=== PATIENT | female | born 1995 | race Caucasian/White ===

== ENCOUNTER 2020-07-04 17:42 | Observation (INO) | payer OTHER, SELFPAY ==
[2020-07-04 18:30] VITALS: BMI 36.6
--- NOTE | 2020-07-04 19:13 | OBADM ---
This patient, Kiesha Potter, admitted to the OB room Labor/Delivery/Recovery 103 for observation. Patient/family oriented to hospital policies and general routines including ID bracelet, bed and alarms, visiting hours, pain management, procedures, bathroom and other care routines, personal items, smoking policy, room service/diet, and visiting hours. Patient/Family are encouraged to report perceived risks to care and to ask questions if they do not understand what they are told or what they should do.
--- NOTE | 2020-07-28 20:25 | PM.OBTRLD ---
OB - Triage/Final Diagnosis Visit Information Reason for evaluation: threatened labor
== END 2020-07-04 19:00 | disposition home or self-care (01) ==
PROVIDERS: Admitting Provider Obstetrics & Gynecology; Visit Provider Obstetrics & Gynecology
DX: O47.9 False labor, unspecified (principal); Z3A.00 Weeks of gestation of pregnancy not specified
CPT/HCPCS: G0378; G0379

== ENCOUNTER 2020-07-20 14:49 | Inpatient (IN) | payer OTHER, SELFPAY ==
[2020-07-20] VITALS (38 sets, daily range): BP systolic 124–153; BP diastolic 80–102; PULSE 78–98; TEMP 36.5–36.6; BMI 39.9
--- NOTE | 2020-07-20 14:58 | LDADM ---
This patient, Keisha Potter, was admitted to Labor/Delivery/Recovery 106 on 07/20/20 at 14:49. Plans for labor, pain management and were discussed with patient. Patient/family oriented to hospital policies and general routines including ID bracelet, bed and alarms, visiting hours, pain management, procedures, bathroom and other care routines, personal items, smoking policy, room service/diet and guest tray routines, infant security routines, and visiting hours. Patient/Family are encouraged to report perceived risks to care and to ask questions if they do not understand what they are told or what they should do. See OBIX for further documentation.
[2020-07-20] MEDS: LACTATED RINGERS 1,000 ML 125 ML IV CONT (15:48)
[2020-07-20] MEDS: OXYTOCIN 30 UNITS/NS 500 ML 30 UNITS/500 ML BAG 6 UNITS IV CONT (15:49)
[2020-07-20 15:56] LABS: Basophils Percent Auto 0.1 % (0.2-1.2); Eosinophils Absolute Auto 0.1 K/mm3 (0-0.3); Eosinophils Percent Auto 0.6 % (0-4.4); Hematocrit 33.6 % (37.0-47.0); Hemoglobin 11.1 g/dL (12.0-15.0); Immature Granulocyte Absolute 0.03 K/mm3 (0.00-0.031); Immature Granulocyte Percent A 0.4 % (0-0.5); Lymphocytes Absolute Auto 1.54 K/mm3 (0.9-3.2); Lymphocytes Percent Auto 19.2 % (18.3-44.2); Mean Corpuscular Hemoglobin 27.3 pg (26-34); Mean Corpuscular Volume 82.8 fl (80-100); Mean Platelet Volume 10.5 fl (7.4-10.4); Monocytes Absolute Auto 0.5 K/mm3 (0.1-0.6); Monocytes Percent Auto 5.6 % (2.6-8.5); Neutrophils Percent Auto 74.1 % (45.5-73.1); Platelet Count Result 283 k/mm3 (150-375); Red Blood Count 4.06 M/mm3 (4.2-5.4); Red Cell Distribution Width 14.5 % (11.5-14.5)
[2020-07-20 16:08] LABS: Alanine Aminotransferase 18 U/L (4-35); Albumin Level 3.4 g/dL (3.5-5.1); Alkaline Phosphatase 116 U/L (38-126); Anion Gap 8 mmol/L (8-16); Aspartate Amino Transferase 24 U/L (14-36); Bilirubin,Total 0.3 mg/dL (0.2-1.3); Blood Urea Nitrogen 9 mg/dL (7-17); Calcium 8.7 mg/dL (8.4-10.2); Carbon Dioxide 19 mmol/L (22-30); Chloride 109 mmol/L (98-107); Estimated CRCL calculation 156 ml/min; Estimated Glomerular Filt Rate > 60; Glucose 111 mg/dL (65-105); Potassium 4.1 mmol/L (3.4-5.0); Sodium 136 mmol/L (137-145)
--- NOTE | 2020-07-20 16:41 | WPDANESEPP ---
Anes - Eval Pre Procedure Procedure: labor epidural Date/Time: 07/20/20 16:41 Surgeon: kay Pre Op Diagnosis: IOL Patient Data Age: 25 Gender: F Height: 1.57 m Weight: 99 kg Last Vital Signs Pulse 95 07/20/20 16:30 BP 124/90 07/20/20 16:30 Allergies Allergy/AdvReac Type Severity Reaction Status Date / Time Penicillins Allergy Unknown Verified 07/02/20 15:26 Home Medications Medication Instructions Recorded Confirmed Type PNV cmb#95-ferrous fumarate-FA 1 tablet PO DAILY 07/02/20 07/20/20 History [] Laboratory Tests 07/20/20 07/20/20 07/20/20 15:40 15:40 15:40 WBC 8.0 K/mm3 K/mm3 (4.5-10.0) RBC 4.06 M/mm3 L M/mm3 (4.2-5.4) Hgb 11.1 g/dL L g/dL (12.0-15.0) Hct 33.6 % L % (37.0-47.0) MCV 82.8 fl fl (80-100) MCH 27.3 pg pg (26-34) MCHC 33.0 g/dl g/dl (32-36) RDW 14.5 % % (11.5-14.5) Plt Count 283 k/mm3 k/mm3 (150-375) MPV 10.5 fl H fl (7.4-10.4) Immature Gran % (Auto) 0.4 % % (0-0.5) Neut % (Auto) 74.1 % H % (45.5-73.1) Lymph % (Auto) 19.2 % % (18.3-44.2) Braxton % (Auto) 5.6 % % (2.6-8.5) Eos % (Auto) 0.6 % % (0-4.4) Baso % (Auto) 0.1 % L % (0.2-1.2) Lymph # (Auto) 1.54 K/mm3 K/mm3 (0.9-3.2) Braxton # (Auto) 0.5 K/mm3 K/mm3 (0.1-0.6) Eos # (Auto) 0.1 K/mm3 K/mm3 (0-0.3) Baso # (Auto) 0.0 K/mm3 K/mm3 (0.0-0.1) Abs Immat Gran (auto) 0.03 K/mm3 K/mm3 (0.00-0.031) Absolute Neuts (auto) 6.0 K/mm3 K/mm3 (1.3-6.7) Absolute Nucleated RBC 0.0 K/mm3 K/mm3 (0.0-0.012) Nucleated RBC % 0.0 % % (0.0-0.2) Sodium 136 mmol/L L mmol/L (137-145) Potassium 4.1 mmol/L mmol/L (3.4-5.0) Chloride 109 mmol/L H mmol/L (98-107) Carbon Dioxide 19 mmol/L L mmol/L (22-30) Anion Gap 8 mmol/L mmol/L (8-16) BUN 9 mg/dL mg/dL (7-17) Creatinine 0.50 mg/dL L mg/dL (0.7-1.0) Estim Creat Clear Calc 156 ml/min ml/min Estimated GFR > 60 (59 - ) Glucose 111 mg/dL H mg/dL (65-105) Uric Acid 6.0 mg/dL mg/dL (2.5-7.5) Calcium 8.7 mg/dL mg/dL (8.4-10.2) Total Bilirubin 0.3 mg/dL mg/dL (0.2-1.3) AST 24 U/L U/L (14-36) ALT 18 U/L U/L (4-35) Alkaline Phosphatase 116 U/L U/L (38-126) Total Protein 7.0 g/dL g/dL (6.3-8.2) Albumin 3.4 g/dL L g/dL (3.5-5.1) RPR Pending 07/20/20 15:40 WBC RBC Hgb Hct MCV MCH MCHC RDW Plt Count MPV Immature Gran % (Auto) Neut % (Auto) Lymph % (Auto) Braxton % (Auto) Eos % (Auto) Baso % (Auto) Lymph # (Auto) Braxton # (Auto) Eos # (Auto) Baso # (Auto) Abs Immat Gran (auto) Absolute Neuts (auto) Absolute Nucleated RBC Nucleated RBC % Sodium Cancelled Potassium Cancelled Chloride Cancelled Carbon Dioxide Cancelled Anion Gap Cancelled BUN Cancelled Creatinine Cancelled Estim Creat Clear Calc Cancelled Estimated GFR Cancelled Glucose Cancelled Uric Acid Calcium Cancelled Total Bilirubin Cancelled AST Cancelled ALT Cancelled Alkaline Phosphatase Cancelled Total Protein Cancelled Albumin Cancelled RPR Patient hx anesthesia problems: none Family hx anesthesia problems: none PMFSH Past Medical History Medical History (Updated 07/20/20 @ 16:42 by Majo Priest CRNA) PIH ( induced hypertension) Family History Family History (Updated 07/02/20 @ 15:28 by Kisha Farley RN) Mother Diabetes mellitus Social History
[2020-07-21] VITALS (166 sets, daily range): BP systolic 105–164; BP diastolic 60–136; PULSE 66–155; RESP 16–22; TEMP 36.3–37.1; O2SAT 71–100
[2020-07-21] MEDS: LACTATED RINGERS 1,000 ML 125 ML IV CONT (03:01)
--- NOTE | 2020-07-21 07:56 | WPDOBADMIT ---
Obstetrics - Admit Note Admission Note: 25 y/o G1 @ 38w5d sent over from the office yesterday for induction d/t gestational hypertension. record reviewed. No pertinent additions to the history and/or any subsequent changes in the physical findings that are not consistent with the expected course of the were found. Additions to the history and/or subsequent changes in the physical findings follow. None.
--- NOTE | 2020-07-21 07:57 | PM.IMHP ---
H&P: HPI History of Present Illness Date/Time: 07/21/20 07:57 Chief complaint: IOL Narrative: Keisha Potter is a 25 year old female here for induction of labor for gestational hypertension. Pt has had 2 elevated blood pressures with increased edema and headache. Review of Systems Review of Systems: All systems reviewed & are unremarkable except as noted in HPI and below Constitutional: Constitutional: Reports as per HPI and Reports no additional constitutional complaints Eyes: Eyes: Reports as per HPI ENT: Reports system reviewed and no additional complaints, except as documented Cardiovascular: Cardiovascular: Reports as per HPI Respiratory: Respiratory: Reports as per HPI Gastrointestinal: Gastrointestinal: Reports as per HPI Genitourinary: Genitourinary: Reports no additional female genitourinary complaints Musculoskeletal: Musculoskeletal: Reports no additional musculoskeletal complaints Integumentary/Breasts: Skin/Breast: Reports system reviewed and no additional complaints, except as docu Neurologic: Reports system reviewed and no additional complaints, except as documented Psychiatric: Psychiatric: Reports no additional psychiatric complaints Endocrine: Endocrine: Reports no additional endocrine complaints Hematologic/Lymphatic: Hematologic/Lymphatic: Reports no additional hematologic/lymphatic complaints Allergic/Immunologic: Allergic/Immunologic: Reports no additional allergic/immunologic complaints PENDING SALE TO [facility] Past Medical History Medical History PIH ( induced hypertension) Family History Family History Mother Diabetes mellitus Social History Social History Smoking status: Never smoker Substance use: never Gender identity (if verbalized by the patient): Female Spiritual care concerns: No Meds Home Medications and Allergies Home Medications Medication Instructions Recorded Confirmed Type PNV cmb#95-ferrous fumarate-FA 1 tablet PO DAILY 07/02/20 07/20/20 History [] Allergies Allergy/AdvReac Type Severity Reaction Status Date / Time Penicillins Allergy Unknown Verified 07/02/20 15:26 Vital Signs Vital Signs - 24 hr 07/20/20 15:15 07/20/20 15:30 07/20/20 16:00 Temperature Pulse Rate 98 95 92 Blood Pressure 140/101 H 141/96 H 134/92 H Pulse Oximetry 07/20/20 16:15 07/20/20 16:30 07/20/20 16:45 Temperature Pulse Rate 93 95 85 Blood Pressure 135/87 124/90 125/89 Pulse Oximetry 07/20/20 17:00 07/20/20 17:15 07/20/20 17:30 Temperature Pulse Rate 91 89 87 Blood Pressure 124/84 135/95 H 132/91 H Pulse Oximetry 07/20/20 17:45 07/20/20 18:00 07/20/20 18:15 Temperature Pulse Rate 89 87 93 Blood Pressure 136/89 135/92 H 129/87 Pulse Oximetry 07/20/20 18:23 07/20/20 18:30 07/20/20 18:45 Temperature 98 F Pulse Rate 84 84 Blood Pressure 140/95 H 127/85 Pulse Oximetry 07/20/20 19:00 07/20/20 19:08 07/20/20 19:15 Temperature Pulse Rate 90 92 97 Blood Pressure 137/102 H 136/83 132/96 H Pulse Oximetry 07/20/20 19:30 07/20/20 19:45 07/20/20 20:00 Temperature Pulse Rate 91 98 91 Blood Pressure 130/95 H 130/96 H 142/93 H Pulse Oximetry 07/20/20 20:15 07/20/20 20:30 07/20/20 20:45 Temperature Pulse Rate 91 91 86 Blood Pressure 132/94 H 141/98 H 137/90 Pulse Oximetry 07/20/20 21:00 07/20/20 21:15 07/20/20 21:30 Temperature Pulse Rate 91 89 84 Blood Pressure 139/93 H 149/93 H 147/95 H Pulse Oximetry 07/20/20 21:45 07/20/20 21:48 07/20/20 21:54 Temperature 97.7 F Pulse Rate 90 90 Blood Pressure 152/94 H 153/99 H Pulse Oximetry 07/20/20 22:00 07/20/20 22:15 07/20/20 22:30 Temperature Pulse Rate 78 78 81 Blood Pressure 146/89 H 150/92 H 147/90 H Pulse Oximetry
[2020-07-21] MEDS: ONDANSETRON INJ 4 MG/2 ML VIAL IV PUSH (14:44)
--- NOTE | 2020-07-21 16:11 | WPDHPUPDATE1 ---
History and Physical Update Update Date/Time: 07/21/20 16:11 Pt has progressed to complete and has pushed for 1.5 hours with little progress. As pt gets more uncomfortable her push effort diminishes. Baby has started to have persistent late decelerations with pushing. Spoke with patient and and they both agree to proceed with section. Dr Mcnulty notified and agreed to proceed. History and Physical has been reviewed, including an updated exam of the patient. There are NO changes in the patient's condition. Risks, benefits, and alternatives have been discussed and questions answered. Patient agrees to proceed with procedure.
--- NOTE | 2020-07-21 17:33 | P.OP_ITS ---
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 She was prepped and draped in the dorsal supine position with leftward tilt after induction of spinal anesthetic. When anesthesia was found to be adequate a low- transverse skin incision was made and carried down to the level the fascia with the knife. The fascial incision was made at the midline with a scalpel. The fascial incision was extended laterally with Singh scissors. The fascia was tented upward superior and inferior with Waldemar clamps. The rectus muscles were dissected off bluntly. The rectus muscles at the midline. The preperitoneal fat was dissected bluntly at the superior aspect of the separate the rectus muscles. The peritoneal cavity was entered bluntly in the same area. The peritoneal incision was extended superior and inferior with good visualization of bladder. Bladder blade was inserted. A low-transverse incision was made on the uterus with the scalpel. It was carried down the level of the amniotic cavity with a knife. The amniotic cavity bluntly. The uterine incision was made laterally with blunt traction. The infant was delivered. The cord was clamped and cut. The was handed off to waiting pediatric staff. Cord bloods were obtained. The placenta was removed manually. The uterus was exteriorized. Uterus cleared of all clots and debris. Uterus closed in 0 Vicryl in a running locked fashion. An imbricating layer of 0 Vicryl was also placed on the to bolster the closure. The uterus was returned to the abdomen. The gutters were cleared of all clots and debris. The fascia was closed 0 Vicryl in a running fashion. Subcutaneous tissue was irrigated and bleeding areas were cauterized. The skin was closed with subcuticular absorbable lisa. The incision was covered with derma najera. The patient tolerated the procedure well. She was taken recovery room stable condition. Sponge, lap, needle counts were correct x2. Anesthesia: spinal Surgeon: Radha Mcnulty MD Estimated blood loss (mL): 240 Drains: No Packing: No Pathology: none sent Complications: No immediate complications Condition: stable Disposition: floor Findings: Normal maternal anatomy. Average size with normal Apgars. No gross evidence of abruption. ROP position
[2020-07-21] MEDS: OXYTOCIN 30 UNITS/NS 500 ML 30 UNITS/500 ML BAG 125 UNITS IV CONT (18:28)
--- NOTE | 2020-07-21 20:02 | OBPPTRN ---
Patient transferred to post room #291 via stretcher. Support person present. Oriented to unit, room, information board, rooming in, admission packet and security measures. Patient verbalizes understanding. Infant with patient.
[2020-07-21] MEDS: KCL 20 MEQ/D5/0.45% SOD CHL 1,000 ML 125 ML IV CONT (21:47)
[2020-07-22] MEDS: KETOROLAC 30 MG/ML VIAL (*BKC) IV PUSH (05:13)
[2020-07-22 05:41] LABS: Basophils Percent Auto 0.2 % (0.2-1.2); Eosinophils Percent Auto 0.1 % (0-4.4); Hematocrit 30.1 % (37.0-47.0); Hemoglobin 9.7 g/dL (12.0-15.0); Immature Granulocyte Absolute 0.08 K/mm3 (0.00-0.031); Immature Granulocyte Percent A 0.5 % (0-0.5); Lymphocytes Absolute Auto 2.06 K/mm3 (0.9-3.2); Mean Corpuscular HGB Conc 32.2 g/dl (32-36); Mean Corpuscular Hemoglobin 27.2 pg (26-34); Mean Corpuscular Volume 84.6 fl (80-100); Mean Platelet Volume 10.7 fl (7.4-10.4); Monocytes Absolute Auto 1.3 K/mm3 (0.1-0.6); Monocytes Percent Auto 7.5 % (2.6-8.5); Neutrophils Absolute Auto 13.7 K/mm3 (1.3-6.7); Neutrophils Percent Auto 79.7 % (45.5-73.1); Platelet Count Result 235 k/mm3 (150-375); Red Blood Count 3.56 M/mm3 (4.2-5.4); Red Cell Distribution Width 14.6 % (11.5-14.5); White Blood Count 17.1 K/mm3 (4.5-10.0)
--- NOTE | 2020-07-22 07:01 | WPDANLDNPN2 ---
Anes-Prog Note L&D-Neuraxial Date/Time: 07/22/20 07:01 Neuraxial medications: intrathecal PF morphine Opiod-related complaints: none Patient feedback: Patient satisfied with post-operative pain management.
--- NOTE | 2020-07-22 07:01 | WPDANLDPN2 ---
Anes-Prog Note L&D Date/Time: 07/22/20 07:01 Comfortable throughout: section Neuraxial method: spinal Epidural/Spinal procedure site: clean & non-tender Neuro status: Neuro function grossly intact. Cardiovascular status: normal Respiratory status: normal Airway patency: baseline Mental status: baseline Post-Op hydration status: normal Vital Signs: Last Vital Signs Temp 36.8 C 07/21/20 23:40 Pulse 97 07/21/20 23:40 Resp 16 07/21/20 23:40 BP 129/79 07/21/20 23:40 Pulse Ox 100 07/21/20 23:40 Pain score (VAS): 10/09 I/O: Intake & Output 07/21/20 07/21/20 07/22/20 15:59 23:59 07:59 Intake Total 1350 Output Total 715 300 Balance 635 -300 Post-procedural complaints: none Patient feedback: Patient satisfied with anesthetic care.
[2020-07-22 07:45] VITALS: BP 125/77; PULSE 88; RESP 18; TEMP 36.6; O2SAT 97
--- NOTE | 2020-07-22 07:49 | PM.OBPNVD ---
OB - PN: Subj Subjective Date/time seen: 07/22/20 07:49 Patient comments: no complaints baby status: doing well OB - PN: Obj Data Labs CBC & Chem 7: 07/22/20 05:12 07/20/20 15:40 Labs: Laboratory Results - last 24 hr 07/22/20 05:12 WBC 17.1 H RBC 3.56 L Hgb 9.7 L Hct 30.1 L MCV 84.6 MCH 27.2 MCHC 32.2 RDW 14.6 H Plt Count 235 MPV 10.7 H Immature Gran % (Auto) 0.5 Neut % (Auto) 79.7 H Lymph % (Auto) 12.0 L Gillespie % (Auto) 7.5 Eos % (Auto) 0.1 Baso % (Auto) 0.2 Lymph # (Auto) 2.06 Gillespie # (Auto) 1.3 H Eos # (Auto) 0.0 Baso # (Auto) 0.0 Abs Immat Gran (auto) 0.08 H Absolute Neuts (auto) 13.7 H Absolute Nucleated RBC 0.0 Nucleated RBC % 0.0 OB - PN A/P Plan day: 1 Plan: routine care Time Spent With Patient Time: Total time spent is greater than 50% in coordination of care (as documented) at patient's floor/unit and/or counseling patient: Review of Systems Review of Systems: All systems reviewed & are unremarkable except as noted in HPI and below Exam Const: General: cooperative Limitations: no limitations Psych: Affect: normal affect Judgement: Good judgement present (Psych)
--- NOTE | 2020-07-22 09:00 | PC.NURSE ---
Consult with pt., mother states her plan was to pump and bottle feed. She had attempted to breast a few times to assist with stimulating milk supply. has been sleepy with ineffective feeding. Mother states she is unsure if she will continue to put to breast. Reviewed instructions breast pump care and usage, pumping schedule, nipple care, and collection and storage of breast milk. Encouraged [id number], breast massage and manual expression to stimulate supply. Pumping log provided and reviewed. Assessed patient for correct flange size, placement and draw. Patient verbalizes and demonstrates understanding of instructions.
[2020-07-22 09:31] LABS: Rapid Plasma Reagin Non-Reactive (NonReactive)
[2020-07-22] MEDS: MULTIVIT/MIN/PREN/FOL AC/IRON TABLET 1 TAB PO (10:53)
[2020-07-22] MEDS: IBUPROFEN 600 MG TABLET PO ×2 (10:53→17:15)
[2020-07-22] MEDS: POLYSACCHARIDE IRON COMPLEX 150 MG CAPSULE PO ×2 (10:53→17:15)
[2020-07-22] MEDS: DOCUSATE SODIUM 100 MG CAPSULE PO ×2 (10:53→17:15)
[2020-07-22] MEDS: HYDROcodone/acetaminophen (*CRX) 5-325 MG TABLET 1 TAB PO ×2 (10:54→17:15)
[2020-07-22 11:40] VITALS: BP 130/78; PULSE 96; RESP 16; TEMP 36.6; O2SAT 97
--- NOTE | 2020-07-22 13:31 | PC.NURSE ---
0900 continued Advised to call out next feeding if mother chooses to put infant to breast.
[2020-07-22 15:30] VITALS: BP 125/83; PULSE 97; RESP 18; TEMP 36.4
[2020-07-22 20:00] VITALS: BP 121/78; PULSE 99; RESP 18; TEMP 36.6; O2SAT 99
[2020-07-23] MEDS: HYDROcodone/acetaminophen (*CRX) 5-325 MG TABLET 1 TAB PO ×3 (05:04→11:16)
[2020-07-23] MEDS: IBUPROFEN 600 MG TABLET PO ×2 (05:05→11:16)
[2020-07-23] MEDS: POLYSACCHARIDE IRON COMPLEX 150 MG CAPSULE PO (08:39)
[2020-07-23] MEDS: DOCUSATE SODIUM 100 MG CAPSULE PO (08:39)
[2020-07-23 08:40] VITALS: BP 123/67; PULSE 101; RESP 18; TEMP 36.6; O2SAT 97
[2020-07-23] MEDS: MULTIVIT/MIN/PREN/FOL AC/IRON TABLET 1 TAB PO (08:40)
--- NOTE | 2020-07-23 11:51 | PC.NURSE ---
Patient viewed the discharge video Mother & Baby Care, The First Two Weeks . Patient was given the opportunity and encouraged to ask questions. Patient verbalized understanding of information shared and has been given the mother/baby guide for home reference.
--- NOTE | 2020-07-23 12:21 | P.PNOB_ITS ---
OB - PN: Subj Subjective Date/time seen: 07/23/20 12:21 Patient comments: no complaints, pain well controlled, incisional pain, tolerating diet and flatus present OB - PN: Obj Data Labs CBC & Chem 7: 07/22/20 05:12 07/20/20 15:40 OB - PN A/P Plan day: 2 Plan: routine care Comments: POD#2 LTCS - no problems, to d/c Time Spent With Patient Time: Total time spent is greater than 50% in coordination of care (as d ocumented) at patient's floor/unit and/or counseling patient: Exam Const: General: comfortable, no acute distress and alert Resp: Effort & Inspection: normal respiratory effort Auscultation: no crackles, no rales and no rhonchi Cardio: Rate: regular rate Heart sounds: no click, no murmurs and no rubs GI: Inspection: non-distended GI Palp: No Tenderness to palpation present (GI) Auscultation: normal bowel sounds Other: Incision - CDI Extrem: General: normal to inspection, no pedal edema and no calf tenderness
--- NOTE | 2020-07-23 12:22 | PM.OBDSVD ---
DS: Admitting Diagnosis Admitting Diagnosis Admitting Diagnosis: IOL DS: Discharge Diagnosis Discharge Diagnosis (1) delivery delivered: Code(s): O82 - Encounter for delivery without indication Status: Acute OB - DS: Summary OB Procedures : None OB Procedures Intrapartum: OB Procedures: : None Peripartum Data Delivery Method: Section Procedures: Procedures Operation Date: 07/21/20 16:30 Actual Procedures Side Surgeon p Section Radha Mcnulty MD Status at Discharge Functional status at discharge: independent ambulation Time Spent with Patient Time attestation: Total time spent providing and/or coordinating discharge services: Discharge Plan Discharge Discharging Clinician: Radha Mcnulty Patient Disposition: Home, Self-Care Activity: pelvic rest Diet: regular Patient Instructions: Antibiotic Form Stand Alone Forms: General Discharge Information Follow-up/Referrals: Radha Mcnulty MD [Physician] - Discharge Medications: New hydrocodone-acetaminophen 5-325 mg tablet 1 - 2 tablet PO Q4H PRN (Reason: pain) Qty: 25 RF: 0 Continued PNV cmb#95-ferrous fumarate-FA [] 28 mg iron- 800 mcg Tablet 1 tablet PO DAILY RF: 0 Date of admission: 07/20/20 14:49 Primary Care Provider: PHYSICIAN,RESIDENCY COORDINATOR Admitting Provider: Radha Mcnulty Attending physician on admission: Sruthi Grant
[2020-07-25 09:48] VITALS: BP 136/90; PULSE 98; RESP 20; TEMP 37; O2SAT 98
== END 2020-07-23 13:30 | disposition home or self-care (01) | DRG 540 ==
LOC: ANHLDR 07-21 13:30 → ANHOB2 07-23 12:24 → ANHLDR 07-25 12:44 → ANHOB2 07-25 12:44
PROVIDERS: Advanced Practice Midwife; Admitting Provider Obstetrics & Gynecology; Visit Provider Obstetrics & Gynecology
PROC: 10D00Z1 Extraction of Products of Conception, Low, Open Approach (ICD-10-PCS; CPT 59514; principal; 2020-07-21 16:30)
DX: O32.4XX0 Maternal care for high head at term, not applicable or unspecified (principal); O13.4 Gestational [pregnancy-induced] hypertension without significant proteinuria, complicating childbirth; O76 Abnormality in fetal heart rate and rhythm complicating labor and delivery; O32.9XX0 Maternal care for malpresentation of fetus, unspecified, not applicable or unspecified; Z3A.38 38 weeks gestation of pregnancy; Z37.0 Single live birth
CPT/HCPCS: 36415; 80053; 84550; 85025; 86592; 86850; 86900; 86901; A9270; J0131; J1885; J2274; J2370; J2405; J2590; J2795; J3480; J7120

== ENCOUNTER 2020-07-25 10:30 | Outpatient (CLI) | payer OTHER, SELFPAY ==
[2020-07-25] VITALS (8 sets, daily range): BP systolic 114–142; BP diastolic 66–88; PULSE 92–116; RESP 16; TEMP 36.7
[2020-07-25 11:39] LABS: Basophils Percent Auto 0.2 % (0.2-1.2); Eosinophils Absolute Auto 0.3 K/mm3 (0-0.3); Eosinophils Percent Auto 2.2 % (0-4.4); Hematocrit 28.2 % (37.0-47.0); Hemoglobin 9.2 g/dL (12.0-15.0); Immature Granulocyte Absolute 0.07 K/mm3 (0.00-0.031); Immature Granulocyte Percent A 0.6 % (0-0.5); Lymphocytes Absolute Auto 1.59 K/mm3 (0.9-3.2); Lymphocytes Percent Auto 13.3 % (18.3-44.2); Mean Corpuscular HGB Conc 32.6 g/dl (32-36); Mean Corpuscular Hemoglobin 27.5 pg (26-34); Mean Corpuscular Volume 84.2 fl (80-100); Mean Platelet Volume 9.6 fl (7.4-10.4); Monocytes Absolute Auto 0.7 K/mm3 (0.1-0.6); Monocytes Percent Auto 5.4 % (2.6-8.5); Neutrophils Absolute Auto 9.3 K/mm3 (1.3-6.7); Neutrophils Percent Auto 78.3 % (45.5-73.1); Platelet Count Result 394 k/mm3 (150-375); Red Blood Count 3.35 M/mm3 (4.2-5.4); Red Cell Distribution Width 14.6 % (11.5-14.5); White Blood Count 11.9 K/mm3 (4.5-10.0)
[2020-07-25 11:50] LABS: Alanine Aminotransferase 21 U/L (4-35); Albumin Level 3.5 g/dL (3.5-5.1); Alkaline Phosphatase 95 U/L (38-126); Anion Gap 10 mmol/L (8-16); Aspartate Amino Transferase 39 U/L (14-36); Bilirubin,Total 0.4 mg/dL (0.2-1.3); Blood Urea Nitrogen 8 mg/dL (7-17); Calcium 8.2 mg/dL (8.4-10.2); Carbon Dioxide 22 mmol/L (22-30); Chloride 106 mmol/L (98-107); Estimated Glomerular Filt Rate > 60; Glucose 89 mg/dL (65-105); Potassium 3.8 mmol/L (3.4-5.0); Sodium 138 mmol/L (137-145); Uric Acid 7.7 mg/dL (2.5-7.5)
--- NOTE | 2020-07-25 12:00 | PC.NURSE ---
called Abdullahi KHANM reported [facility] lab result. order received to repeat lab in 4 hours.
[2020-07-25] MEDS: HYDROcodone/acetaminophen (*CRX) 5-325 MG TABLET 2 TAB PO (12:25)
[2020-07-25 15:44] LABS: Mean Platelet Volume 9.6 fl (7.4-10.4); Platelet Count Result 395 k/mm3 (150-375)
[2020-07-25 15:55] LABS: Alanine Aminotransferase 24 U/L (4-35); Albumin Level 3.3 g/dL (3.5-5.1); Alkaline Phosphatase 92 U/L (38-126); Anion Gap 8 mmol/L (8-16); Aspartate Amino Transferase 48 U/L (14-36); Bilirubin,Total 0.4 mg/dL (0.2-1.3); Blood Urea Nitrogen 8 mg/dL (7-17); Calcium 8.2 mg/dL (8.4-10.2); Carbon Dioxide 23 mmol/L (22-30); Chloride 107 mmol/L (98-107); Estimated Glomerular Filt Rate > 60; Glucose 103 mg/dL (65-105); Potassium 3.9 mmol/L (3.4-5.0); Sodium 138 mmol/L (137-145); Uric Acid 7.5 mg/dL (2.5-7.5)
--- NOTE | 2020-07-25 16:15 | PC.NURSE ---
called Abdullahi aldana with lab result. Nirmala will talk to Dr. Mcnulty with result.
--- NOTE | 2020-07-25 17:42 | PC.NURSE ---
Abdullahi Grant CNM on the phone, discharge order received
== END 2020-07-25 17:10 | disposition home or self-care (01) ==
LOC: ANHOBOP 10:42 → ANHOBPP 10:44
PROVIDERS: Advanced Practice Midwife; Visit Provider Obstetrics & Gynecology
DX: O13.9 Gestational [pregnancy-induced] hypertension without significant proteinuria, unspecified trimester (principal); Z3A.00 Weeks of gestation of pregnancy not specified
CPT/HCPCS: 36415; 80053; 84550; 85025; 85049; 99199; A9270

== ENCOUNTER 2022-11-28 08:47 | Emergency (ER) | payer OTHER, SELFPAY ==
[2022-11-28] VITALS (23 sets, daily range): BP systolic 116–152; BP diastolic 75–87; PULSE 64–83; RESP 13–20; O2SAT 98–100
--- NOTE | ~2022-11-28 | XR_ITS ---
EXAMINATION: XR chest 2V 11/28/2022 09:27 INDICATION: Centralized chest pain PROCEDURE: 2 view chest COMPARISON: 04/18/2022 FINDINGS: The lungs are clear. The cardiomediastinal silhouette is within normal limits. There are no pleural effusions. There is no pneumothorax suspected. IMPRESSION: 1: NO ACUTE CARDIOPULMONARY DISEASE. Reviewed, dictated and finalized at location B. [facility]
--- NOTE | 2022-11-28 09:02 | ECG_ITS ---
Measurements Intervals [place] Rate: 80 P: 45 NM: 140 QRS: 16 QRSD: 104 T: -20 QT: 360 QTc: 415 Interpretive Statements SINUS RHYTHM WITH SINUS ARRHYTHMIA DELAYED PRECORDIAL R/S TRANSITION ST-T WAVE ABNORMALITY IN INFERIOR LEADS- CONSIDER ISCHEMIA BASELINE ARTIFACT- I, II, AVR ABNORMAL ECG NO PREVIOUS ECG AVAILABLE FOR COMPARISON Electronically Signed On 11-28-2022 12:42:15 [employer] OFFICER by Ketan Lopez D.O.
[2022-11-28 09:14] LABS: Basophils Percent Auto 0.5 % (0.2-1.2); Eosinophils Absolute Auto 0.1 K/mm3 (0-0.3); Eosinophils Percent Auto 1.1 % (0-4.4); Hematocrit 39.8 % (37.0-47.0); Hemoglobin 12.4 g/dL (12.0-15.0); Immature Granulocyte Absolute 0.04 K/mm3 (0.00-0.031); Immature Granulocyte Percent A 0.5 % (0-0.5); Lymphocytes Absolute Auto 1.75 K/mm3 (0.9-3.2); Lymphocytes Percent Auto 23.1 % (18.3-44.2); Mean Corpuscular HGB Conc 31.2 g/dl (32-36); Mean Corpuscular Hemoglobin 26.6 pg (26-34); Mean Corpuscular Volume 85.4 fl (80-100); Mean Platelet Volume 9.2 fl (7.4-10.4); Monocytes Absolute Auto 0.3 K/mm3 (0.1-0.6); Monocytes Percent Auto 4.5 % (2.6-8.5); Neutrophils Absolute Auto 5.3 K/mm3 (1.3-6.7); Neutrophils Percent Auto 70.3 % (45.5-73.1); Platelet Count Result 473 k/mm3 (150-375); Red Blood Count 4.66 M/mm3 (4.2-5.4); Red Cell Distribution Width 13.2 % (11.5-14.5); White Blood Count 7.6 K/mm3 (4.5-10.0)
[2022-11-28 09:23] LABS: Prothrombin Time 12.6 Seconds (11.1-14.7)
[2022-11-28 09:25] LABS: Alanine Aminotransferase 23 U/L (6-35); Albumin Level 5.1 g/dL (3.5-5.1); Alkaline Phosphatase 53 U/L (38-126); Anion Gap 9 mmol/L (8-16); Aspartate Amino Transferase 22 U/L (14-36); Bilirubin,Total 0.5 mg/dL (0.2-1.3); Blood Urea Nitrogen 14 mg/dL (7-17); Calcium 8.7 mg/dL (8.4-10.2); Carbon Dioxide 26 mmol/L (22-30); Chloride 104 mmol/L (98-107); Estimated CRCL calculation 106 ml/min; Estimated Glomerular Filt Rate > 60; Glucose 102 mg/dL (65-110); Lipase 84 U/L (23-300); Potassium 3.6 mmol/L (3.4-5.0); Sodium 139 mmol/L (137-145)
[2022-11-28 09:36] LABS: Troponin I < 0.012 ng/mL (0.000-0.034)
--- NOTE | 2022-11-28 11:42 | ED.GENADULT ---
HPI - General Adult General Chief complaint: Chest Pain Stated complaint: HEART ISSUES Time Seen by Provider: 11/28/22 09:34 History of Present Illness HPI narrative: 27-year-old female presented to the emergency department for evaluation of substernal chest pain that radiates to the right that started this morning at 5 AM. Patient also reports she has been having elevated blood pressure over the course of the last week. Patient states she has no prior history of high blood pressure. Related Data Home Medications Medication Instructions Recorded Confirmed ferrous sulfate 325 mg (65 mg 325 mg PO DAILY 11/28/22 11/28/22 iron) tablet Allergies Allergy/AdvReac Type Severity Reaction Status Date / Time Penicillins Allergy Unknown Verified 11/28/22 07:57 Review of Systems Review of Systems: All systems reviewed & are unremarkable except as noted in HPI and below PMFSH Past Medical History Medical History PIH ( induced hypertension) Family History Family History Mother Diabetes mellitus Social History Social History Smoking status: Never smoker Substance use: never Gender identity (if verbalized by the patient): Female Spiritual care concerns: No Exam Narrative: APPEARANCE: Well appearing, no pain, no distress, well-nourished. HEAD: normocephalic, atraumatic. EYES: PERRLA/EOMI, conjunctivae clear. NOSE: Normal no drainage NECK: Supple. No adenopathy, no masses. RESPIRATORY: Airway patent, respirations nonlabored. Clear to auscultation bilaterally, no rales, rhonchi, wheezing. CARDIOVASCULAR: Regular rate and rhythm without murmurs rubs or gallops. ABDOMINAL: Soft, nontender, nondistended, normal bowel sounds MUSCULOSKELETAL: Moves all extremities. Strength/ROM intact, No edema, No calf tenderness. NEURO: Alert. Cranial nerves II through XII intact. Grossly intact SKIN: Warm, dry. Normal Color Course Course Emergency Course: 19-year-old female presented to the emergency department for evaluation of hypertension over the course of the last week and chest pain. Patient is afebrile with no leukocytosis. Patient D-dimer was within normal limits. Patient's CMP is within normal limits and patient had negative serial troponins. Chest x-ray showed no acute cardiopulmonary abnormality. Patient's blood pressure did improve while she was in the emergency department. No blood pressure medications were not needed. Patient was updated on the results of her work-up and was encouraged of close follow-up with her primary care physician. All questions and concerns were addressed. Vital Signs Vital signs: Vital Signs Pulse Rate 81 11/28/22 08:54 Respiratory Rate 20 11/28/22 08:54 Blood Pressure 152/87 H 11/28/22 08:54 Pulse Oximetry 100 11/28/22 08:54 Oxygen Delivery Room Air 11/28/22 08:54 Pulse Rate 80 11/28/22 13:51 Respiratory Rate 17 11/28/22 13:51 Blood Pressure 136/79 11/28/22 13:51 Pulse Oximetry 99 11/28/22 13:51 Oxygen Delivery Room Air 11/28/22 08:54 Medical Decision Making Vital Signs Vital Signs: Vital Signs Pulse Rate 81 11/28/22 08:54 Respiratory Rate 20 11/28/22 08:54 Blood Pressure 152/87 H 11/28/22 08:54 Pulse Oximetry 100 11/28/22 08:54 Oxygen Delivery Room Air 11/28/22 08:54 Pulse Rate 80 11/28/22 13:51 Respiratory Rate 17 11/28/22 13:51 Blood Pressure 136/79 11/28/22 13:51 Pulse Oximetry 99 11/28/22 13:51 Oxygen Delivery Room Air 11/28/22 08:54 Lab Data Lab results reviewed: Yes I reviewed the patient's lab results. 11/28/22 09:06 11/28/22 09:06 Labs: Lab Results 11/28/22 11/28/22 11/28/22 Range/Units 09:06 09:06 09:06 WBC 7.6 (4.5-10.0) K/mm3 RBC 4.66 (4.2-5.4) M/mm3 Hgb 12
[2022-11-28 11:58] LABS: Magnesium 2.1 mg/dL (1.6-2.3)
[2022-11-28 12:04] LABS: D Dimer 0.31 ug/mL (<0.48)
[2022-11-28 12:31] LABS: Thyroid Stimulating Hormone Reflex 0.923 uIU/mL (0.465-4.68)
[2022-11-28 12:34] LABS: Troponin I < 0.012 ng/mL (0.000-0.034)
== END 2022-11-28 13:52 | disposition home or self-care (01) ==
PROVIDERS: Emergency Provider Emergency Medicine; PCP Physician Assistant Medical
DX: R07.2 Precordial pain (principal); I10 Essential (primary) hypertension; R94.31 Abnormal electrocardiogram [ECG] [EKG]
CPT/HCPCS: 36415; 71046; 80053; 83690; 83735; 84443; 84484; 85025; 85380; 85610; 85730; 93005; 99284

== ENCOUNTER 2022-12-14 07:25 | Outpatient (CLI) | payer OTHER, SELFPAY ==
--- NOTE | 2022-12-14 07:28 | ECHO_ITS ---
Patient Info Name: Keisha Potter Age: 27 years : 1995 Gender: Female Ht: 63 in Wt: 180 lbs BSA: 1.94 m2 HR: 72 bpm BP: 120 / 94 mmHg Technical Quality: Good Exam Date: 12/14/2022 7:54 AM Exam Location: [facility] Patient Status: Outpatient Admit Date: 12/14/2022 Staff Ordering Physician: Najma Parra PA-C Diamond Blender: Arnaud Roth RDCS, RT Attending Provider: Najma Parra PA-C Referring Physician: Fidel BASSETT; Exam Type: CA echo doppler color flow Study Info Indications R01.1 - Cardiac murmur, unspecified Complete two-dimensional, color flow and Doppler transthoracic echocardiogram is performed. Strain analysis performed. Summary 1. Complete two-dimensional, color flow and Doppler transthoracic echocardiogram is performed. 2. Left ventricular chamber dimension is mildly enlarged. 3. Left ventricular systolic function is normal, estimated at 55-60%. 4. The left ventricular diastolic function is normal. 5. E/e' 6 is not elevated. 6. Global longitudinal strain is normal at -18.6%. 7. There is trace mitral valve regurgitation. Left Ventricle E/e' 6 is not elevated. Global longitudinal strain is normal at -18.6%. Left ventricular chamber dimension is mildly enlarged. Left ventricular systolic function is normal, estimated at 55-60%. The left ventricular diastolic function is normal. Right Ventricle Right ventricular systolic function is normal and with normal TAPSE 2.3 cm. Right ventricular chamber dimension is normal. Left Atria Left atrial chamber dimension is normal. Right Atria Right atrial chamber dimension is normal. Aortic Valve The aortic valve is trileaflet. There is no aortic valve stenosis. There is no aortic valve regurgitation. Pulmonic Valve There is no pulmonic regurgitation. Mitral Valve There is no mitral valve stenosis. There is trace mitral valve regurgitation. Tricuspid Valve There is no tricuspid valve regurgitation. Pericardium/Pleural There is no pericardial effusion. Inferior Vena Cava Normal inferior vena cava with >50% collapse upon inspiration consistent with normal right atrial pressure, 5 mmHg. Aorta The aortic root size at the sinus of Valsalva is normal. Left Ventricular Outflow Tract Name Value Normal LVOT Doppler LVOT Peak Gradient 5 mmHg LVOT Mean Gradient 3 mmHg LVOT VTI 23 cm LVOT VTI/AV VTI Ratio 0.7 Mitral Valve Name Value Normal MV Doppler MV Peak Gradient 1 mmHg MV Mean Gradient 0 mmHg MV Decel Real 344 cm/s2 MV PHT 61 ms MV Area (PHT) 3.6 cm2 4.0-5.0 MV Regurgitation Doppler MR Peak Gradient
== END 2022-12-14 07:26 | disposition home or self-care (01) ==
PROVIDERS: PCP Physician Assistant Medical; Visit Provider Physician Assistant Medical
DX: R01.1 Cardiac murmur, unspecified (principal); R07.9 Chest pain, unspecified; I10 Essential (primary) hypertension
CPT/HCPCS: 93306